=== PATIENT | female | born 1980 | race Caucasian/White ===

== ENCOUNTER 2020-01-30 18:07 | Inpatient (IN) | payer OTHER ==
[~2020-01-30] VITALS: Ht 160 cm; Wt 63.5 kg
--- NOTE | 2020-01-30 18:07 | NUR ---
ARRIVES IN CUSTODY OF [facility]S DEPUT[facility]. ON A 5150 HOLD. CONDUCT IS UNCOOPERATIVE. RAMBLES AT TIMES.
--- NOTE | 2020-01-30 18:39 | NUR ---
STILL SCREAMING. NO RESULTS FROM MEDICATIONS
--- NOTE | 2020-01-30 18:40 | NUR ---
velcrove restraints applied, due to non compliant behavior.
--- NOTE | 2020-01-30 19:09 | NUR ---
REPORT PASSED ON TO [employer] INSTALLER STAFF
[2020-01-30 19:14] LABS: BASOPHIL % 0.4 % (0-2); PLATELET COUNT 279 x10^3mcL (130-400); RED CELL DISTRIBUTION WIDTH 16.3 % (11.5-14.5)
--- NOTE | 2020-01-30 19:15 | NUR ---
all restraints removed at this time. pt sleeping soundly at present time
[2020-01-30 19:25] LABS: ALBUMIN 3.8 g/dL (3.4-5.0); ALKALINE PHOSPHATASE 71 U/L (46-116); ALT/SGPT 21 U/L (14-59); AST/SGOT 20 U/L (15-37); BILIRUBIN TOTAL 0.5 mg/dL (0.20-1.00); CALCIUM 8.2 mg/dL (8.5-10.1); CARBON DIOXIDE 30.2 mmol/L (21-32); CHLORIDE SERUM 102 mmol/L (98-107); CREATININE SERUM 0.9 mg/dL (0.6-1.0); GFR1 > 60 mL/min; GLUCOSE SERUM 97 mg/dL (74-106); SODIUM SERUM 140 mmol/L (136-145)
[2020-01-30 19:29] LABS: POTASSIUM SERUM 2.2 mmol/L (3.5-5.1)
--- NOTE | 2020-01-31 02:00 | NUR ---
PT REMAINS ASLEEP, NO DISTRESS NOTED
--- NOTE | 2020-01-31 04:00 | NUR ---
PT UP TO BSC, URINE COLLECTED
[2020-01-31 04:28] LABS: AMPHETAMINE QUAL UR POSITIVE (See below)
[2020-01-31 05:38] LABS: ALBUMIN 3.2 g/dL (3.4-5.0); ALKALINE PHOSPHATASE 65 U/L (46-116); ALT/SGPT 19 U/L (14-59); AST/SGOT 23 U/L (15-37); BILIRUBIN TOTAL 0.6 mg/dL (0.20-1.00); CALCIUM 7.8 mg/dL (8.5-10.1); CARBON DIOXIDE 28.6 mmol/L (21-32); CHLORIDE SERUM 105 mmol/L (98-107); CREATININE SERUM 0.7 mg/dL (0.6-1.0); GFR1 > 60 mL/min; GLUCOSE SERUM 94 mg/dL (74-106); MAGNESIUM 2.3 mg/dL (1.8-2.4); SODIUM SERUM 139 mmol/L (136-145)
[2020-01-31 05:40] LABS: POTASSIUM SERUM 2.8 mmol/L (3.5-5.1)
[2020-01-31 05:41] LABS: BASOPHIL % 0.6 % (0-2); PLATELET COUNT 237 x10^3mcL (130-400); RED CELL DISTRIBUTION WIDTH 16.1 % (11.5-14.5)
--- NOTE | 2020-01-31 06:37 | NUR ---
PT AWAKE AND APPROPRIATE, ANSWERING QUESTIONS, CALM AND COOPREATIVE
--- NOTE | 2020-01-31 07:10 | NUR ---
RECEIVED PT FROM SHEET METAL ASSEMBLER AND RIVETER, PT LAYING DOWN IN BED WITH HOB UP RESTING, PT EASILY AROUSABLE, PT ABLE TO VERBALIZE NEEDS, DENIES ANY SI/HI AT THIS TIME. PROVIDED PATIENT WITH BREAKFAST TRAY AND ADDITONAL BLANKET. MADE PATIENT COMFORTABLE IN BED, ALL NEEDS MET. PT IN CLEAR VIEW OF NURSING STATION, IV FLUIDS INFUSING, IV SITE PATENT. WILL CONTINUE TO MONITOR. CALL LIGHT WITHIN REACH.
--- NOTE | 2020-01-31 09:07 | NUR ---
PT LAYING DOWN ON GURNEY TO RIGHT SIDE, CHEST RISE AND FALL NOTED. PT HAS HANDS IN VIEW. IV FLUIDS COMPLETED. VSS. WILL CONTINUE TO MONITOR. PT IN VIEW OF STAFF, NEXT TO NURSING STATION
--- NOTE | 2020-01-31 10:06 | NUR ---
CALLED REPORT TO RENAY GUERRERO ON TELE FLOOR [id number]
[2020-01-31 10:59] VITALS: BP 103/71
--- NOTE | 2020-01-31 10:59 | NUR ---
RECIEVED PATIENT FROM THE ER. PATIENT ACCOMPANIED TO TELEMETRY FLOOR ON [facility] BY ER NURSE. PATIENT IS CURRENTLY AWAKE ALERT AND ORIENTED X 3. PATIENT IS ON A 5150 HOLD. SITTER AT BEDSIDE. PATIENT IS FORGETFUL AND STATES THAT SHE DOES NOT KNOW HOW OR WHY SHE WAS BROUGHT INTO THE HOSPITAL. IV SITE TO THE RIGHT WRIST CURRENTLY SALINE LOCKED. PATIENT HAD A LOW POTASSIUM LEVEL IN THE ER WHICH WAS COVERED WITH 20 MEQ IV POTASSIUM PER ER NURSE. SUBSEQUENT SERUM POTASSIUM DRAW ORDERED BY DR. VERGARA. PATIENT HAS BEEN PLACED ON TELEMETRY MONITORING. SAFETY PRECAUTIONS IN PLACE. CALL LIGHT WITHIN REACH. WILL CONTINUE TO PROVIDE CARE FOR PATIENT.
--- NOTE | 2020-01-31 13:24 | NUR ---
PATIENT IS REFUSING TO BE SWABBED FOR MRSA DESPITE EDUCATION PROVIDED ON TOPIC.
[2020-01-31 16:00] VITALS: BP 99/60
--- NOTE | 2020-01-31 18:44 | NUR ---
PATIENT IS CURRENTLY AWAKE ALERT AND ORIENTED X 4. SITTER AT BEDSIDE. PATIENT IS CURRENTLY ON A 5150 HOLD. IV SITE TO THE RIGHT WRIST IS CURRENTLY SALINE LOCKED. PATIENT ANXIOUS THROUGHOUT SHIFT, PATIENT WAS PROVIDED WITH ANTIANXIETY MEDICATION PER EMAR AND PHYSICIAN ORDER. PATIENT'S POTASSIUM LEVEL 2.8 PER MORNING LAB DRAW- PATIENT RECIEVED 20 MEQ IV IN THE ER. SUBSEQUENT SERUM POTASSIUM ORDERED BY DR. VERGARA- HOWEVER PATIENT REFUSED SUBSEQUENT LAB DRAW. DR. VERGARA MADE AWARE. PATIENT ALSO RECIEVED AN ADDITIONAL 40 MEQ POTASSIUM PER PHYSICIAN ORDER. CURRENTLY PENDING PSYCHIATRY CONSULT. SAFETY PRECAUTIONS IN PLACE. WILL ENDORSE ALL FURTHER CARE TO THE NOC NURSE.
--- NOTE | 2020-01-31 19:47 | NUR ---
PT REPORT FROM RENAY GUERRERO. PATIENT AXOX4 NO S/S OF DISTRESS OR DISCOMFORT. BREATHING EVEN AND UNLABORED ON RA SPO2 100%. PATIENT IS ABLE TO AMBULATE. IV R WRIST SL. NO S/S OF INFILTRATION. TELE 9 NSR AT THIS TIME. ACTIVE BOWELS X4 SOFT ROUND NON TENDER ABD. SKIN INTACT. STRONG RADIAL AND PEDAL PULSES. VOIDS FRELY IN THE RESTROOM. BED IN LOW POSITION. SIDE RAILS UPX2 CALL LIGHT WITHIN REACH. WILL CONTINUE TO MONITOR PATIENT AND OFFER SUPPORT.
[2020-01-31 20:50] VITALS: BP 104/65
--- NOTE | 2020-02-01 00:30 | NUR ---
PATIENT RESTING, EYES CLOSED, NO S/S OF DISTRESS OR DISCOMFORT. SITTER AT BEDSIDE. PATIENT BREATHING EVEN AND UNLABORED ON RA. TELE 9 NSR. WILL CONTINUE TO MONITOR PATIENT AND OFFER SUPPORT.
--- NOTE | 2020-02-01 05:51 | NUR ---
PT AWAKE, NO S/S OF DISTRESS. PATIENT WAS ABLE TO GET HER BLOOD DRAWN THIS MORNING. PT DENIES PAIN AT THIS TIME. TELE 9 NSR. PATIENT AMBULATES TO THE RESTROOM. NO DIZZINESS OR CP. SITTER AT BEDSIDE PATIENT CALM AND COOPERATIVE WITH CARE.
[2020-02-01 05:52] LABS: BASOPHIL % 0.4 % (0-2); PLATELET COUNT 283 x10^3mcL (130-400)
[2020-02-01 05:53] LABS: RED CELL DISTRIBUTION WIDTH 16.9 % (11.5-14.5)
[2020-02-01 06:18] VITALS: BP 110/51
[2020-02-01 06:37] LABS: ALBUMIN 3.4 g/dL (3.4-5.0); ALKALINE PHOSPHATASE 76 U/L (46-116); ALT/SGPT 19 U/L (14-59); AST/SGOT 18 U/L (15-37); BILIRUBIN TOTAL 0.3 mg/dL (0.20-1.00); CALCIUM 8.3 mg/dL (8.5-10.1); CARBON DIOXIDE 26.4 mmol/L (21-32); CHLORIDE SERUM 106 mmol/L (98-107); CREATININE SERUM 0.7 mg/dL (0.6-1.0); GFR1 > 60 mL/min; GLUCOSE SERUM 88 mg/dL (74-106); MAGNESIUM 2.2 mg/dL (1.8-2.4); POTASSIUM SERUM 3.5 mmol/L (3.5-5.1); SODIUM SERUM 140 mmol/L (136-145); TOTAL PROTEIN, SERUM 6.4 g/dL (6.4-8.2)
--- NOTE | 2020-02-01 12:13 | NUR ---
REC'VD PT FROM NIGHT RN. PT RESTING IN BED WITH EYES CLOSED BUT EASILY AROUSABLE. AAOX4. RES E/U, DENIES SOB ON RA. TELE MONITOR 9 SHOWING SR. DENIES CP/PRESSURE. IV SITE TO R WRIST SL, PATENT AND CDI. NO ACUTE DISTRESS NOTED. DENIES PAIN/DISCOMFORT AT THIS TIME. DENIES SI AT THIS TIME. [address] 1:1 SITTER AT BEDSIDE.
--- NOTE | 2020-02-01 12:36 | NUR ---
Received referral information this morning and awaited the hold. Once received intake was sne tout to th following facilities for possible bed placement. [facility]/ [facility]/ [facility]/ [facility]/ [facility]....Will keep facility updated with any information
--- NOTE | 2020-02-01 12:58 | NUR ---
PT C/O ANXIETY, GIVEN ATIVAN PO PER EMAR
[2020-02-01 14:14] VITALS: BP 118/83
--- NOTE | 2020-02-01 18:45 | NUR ---
Call Center still aware of patient. Will continue to seek placement
--- NOTE | 2020-02-01 19:05 | NUR ---
PT RESTING IN BED WITHOUT APPARENT DISTRESS. DENIES PAIN/DISCOMFORT. [address] NO SIGNIFICANT CHANGES NOTED. WILL ENDORSE CARE TO NEXT SHIFT
[2020-02-01 19:13] VITALS: BP 110/79
--- NOTE | 2020-02-01 19:45 | NUR ---
PATIENT REPORT FROM MARYSOL GUERRERO. PT BREATHING EVEN AND UNLABORED ON RA 98% SPO2 CTAB. PATIENT SHOW NO S/S OF DISTRESS OR DISCOMFORT. PATIENT TALKING ON THE PHONE TO FAMILY. SITTER AT BEDSIDE. AMBULATES TO THE RESTROOM. IV R WRIST 20G SL. TELE 9 NSR ACTIVE BOWEL SOUND, NON TENDER. SKIN CLEAR STRONG PEDAL AND RADIAL PULSES. VOIDS FREELY IN THE RESTROOM. BED IN LOW POSITION, SIDE RAILS UPX2 CALL LIGHT WITHIN REACH. WILL CONTINUE TO MONITOR PATIENT AND OFFER SUPPORT.
[2020-02-01 21:08] VITALS: BP 110/53
--- NOTE | 2020-02-01 21:52 | NUR ---
Packet faxed to the following facilities [facility]
--- NOTE | 2020-02-02 02:44 | NUR ---
PT RESTING NO S/S OF DSTRESS OR DISCOMFORT. PATIENT BREATHING EVEN AND UNLABORED ON RA. 995 SPO2. SITTER AT BEDSIDE. WILL CONTINUE TO MONITOR PATIENT AND OFFER SUPPORT.
--- NOTE | 2020-02-02 05:46 | NUR ---
PATIENT WAS ABLE TO SLEEP THROUGH THE NIGHT. NO S/S OF DISTRESS OR DISCOMFORT. NO AGITATION, CALM AND COOPERATIVE.SITTER AT BEDSIDE. NO REPORTS FROM TELE. PATIENT DID REFUSED LAB DRAW THIS MORNING. PATIENT ENCOURAGED TO DO LABS BUT REFUSED. " I DONT WANT TO DO IT" WILL CONTINUE TO MONITOR PATIENT AND OFFER SUPPORT.
[2020-02-02 06:14] VITALS: BP 100/74
--- NOTE | 2020-02-02 07:00 | NUR ---
REC'VD PT FROM NIGHT RN. PT RESTING IN BED WITH EYES CLOSED BUT EASILY ARUOSABLE. PT REFUSING LAB DRAWS PER REPORT. AAOX4, APPROPRIATE CONVERSATION NOTED. DENIES SI. RES E/U. TELE MONITOR 9 SHOWING SR. IV SITE TO R WRIST SL. NO ACUTE DISTRESS NOTED. DENIES PAIN/DISCOMFORT AT THIS TIME. 5150 HOLD. 1:[address]
[2020-02-02 08:50] VITALS: BP 123/58
--- NOTE | 2020-02-02 09:39 | NUR ---
Monitoring and assessing bed placement situation. No beds available through the night. Will continue to keep facility informed of any updates through the day.
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
--- NOTE | 2020-02-02 11:34 | NUR ---
PT APPEARS ANXIOUS AND AGITATED, PACING BACK AND FORTH, GIVEN ATIVAN PO PER EMAR
[2020-02-02 13:00] VITALS: BP 93/56
[2020-02-02 18:15] VITALS: BP 105/55
[2020-02-02 21:21] VITALS: BP 96/64
--- NOTE | 2020-02-02 23:20 | NUR ---
PT REPORT FROM MARYSOL GUERRERO, PATIENT AXOX4 NO S/S OF DISTRESS OR DISCOMFORT. PATIENT BREATHING EVEN AND UNLABORED ON RA 99% SPO2. AMBULATES, VOIDS FREELY, SKIN CLEAR AND INTACT. PATIENT MED SURG, IV R WRIST 20G SL INTACT. STRONG RADIAL AND PEDAL PULSES. NO ABD PAIN SOFT ROUND NON TENDER ACTIVE X4. CALM AND COOPERATIVE WITH CARE. BED IN LOW POSITION, SIDE RAILS UPX2, CALL LIGHT WITHIN REACH, SITTER AT BEDSIDE.
--- NOTE | 2020-02-02 23:54 | NUR ---
Spoke to Charge nurse Anibal GUERRERO , Notified her at this time there are no beds still at the following facilties [facility] - Ar[facility] Garcia intake at [facility] still reviewing packet.
--- NOTE | 2020-02-03 | NUR ---
CALL RECIEVED FROM KAYLA FROM [facility]. [phone] FAXED AT THIS TIME.
--- NOTE | 2020-02-03 00:30 | NUR ---
PATIENT RESTING EYES CLOSED. NO S/S OF DISTRESS, SITTER AT BEDSIDE. PATIENT BREATHING EVEN AND UNLABORED. IV R WRIST, INTACT. MED SURG.
[2020-02-03 06:09] VITALS: BP 123/98
[2020-02-03 08:39] VITALS: BP 113/77
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
[2020-02-03 13:29] VITALS: BP 125/76
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
--- NOTE | 2020-02-03 13:45 | NUR ---
1. Continue with a Regular Diet.
[2020-02-03] MEDS ORDERED: QUETIAPINE FUMA25 M1 PO (14:32)
[2020-02-03 14:38] VITALS: BP 125/76
--- NOTE | 2020-02-03 15:57 | NUR ---
PT IS GETTING PICKED UP IN A STABLE CONDITION NOW FOR TRANSPORT BY [facility] TO GO [facility], ROOM [address], AND SHE WILL BE UNDER THE CARE OF DR. BARNHART. I GAVE REPORT TO MARCELINA GUERRERO AT THE RECIEVING FACILITY. ALL INTERVENTIONS CARRIED OUT PER PROTOCOL WITH NO SIGNIFICANT CHANGES NOTED. IV REMOVED FOR DISCHARGE AND ALL PAPERWORK SIGNED AND FILED ACCORDINGLY.
== END 2020-02-03 16:08 | DRG 425 ==
LOC: ED 18:07 → DU 20:25 → MU 02-02 10:11
PROVIDERS: Emergency Medicine; Hospitalist; ADMIT Hospitalist; ATTEND Hospitalist
DX: E87.6 Hypokalemia (principal); F20.9 Schizophrenia, unspecified; F31.9 Bipolar disorder, unspecified; Z20.828 Contact with and (suspected) exposure to other viral communicable diseases
CPT/HCPCS: G0378; G0480; J1630; J2250; J3480; J7030; U0003